=== PATIENT | female | born 1960 | race Caucasian/White ===

== ENCOUNTER → 2022-03-16 | Outpatient (CLI) | payer BC, SELFPAY ==
--- NOTE | 2022-03-16 15:26 | CT_ITS ---
EXAM: CT NECK WITH INTRAVENOUS CONTRAST CLINICAL INDICATION: LYMPHEDEMA TECHNIQUE: Helically acquired images were obtained of the neck with intravenous contrast. This CT exam was performed using one or more of the following dose reduction techniques: automated exposure control, adjustment of the mA and/or kV according to patient size, and/or use of iterative reconstruction technique. This report was created using [employer] report generation technology. CONTRAST: 75 cc of Isovue-370 IV. RADIATION DOSE: CTDIvol = 19.88 mGy, DLP = 617.82 mGy-cm. COMPARISON: None. FINDINGS: NASOPHARYNX: Unremarkable. SUPRAHYOID NECK: Unremarkable. Oropharynx, oral cavity, parapharyngeal space and retropharyngeal space are unremarkable. INFRAHYOID NECK: Unremarkable. The larynx, hypopharynx and supraglottis are unremarkable. SUBMANDIBULAR/PAROTID GLANDS: Unremarkable. Glands are normal in size. THYROID: Unremarkable. No enlarged or calcified nodules. BONES/JOINTS: No acute fracture. SOFT TISSUES: Unremarkable. VASCULATURE: No acute findings. LYMPH NODES: Unremarkable. No lymphadenopathy. LUNG APICES: Unremarkable as visualized. CT/Soft Tissue Neck WITH Contrast IMPRESSION: Normal neck CT. Electronically Signed: Elijah Mcconnell MD at 5:23 EDT ,
[2022-03-16 16:21] LABS: CREATININE FINGERSTICK < 0.9 mg/dL (0.55-1.02); EGFR FINGERSTICK > 60.0000 mL/min (>60)
== END | disposition home or self-care (01) ==
PROVIDERS: PCP Internal Medicine; Visit Provider Internal Medicine
DX: R59.0 Localized enlarged lymph nodes (principal)
CPT/HCPCS: 70491; Q9967

== ENCOUNTER → 2024-02-07 | Outpatient (CLI) | payer BC, SELFPAY ==
--- NOTE | 2024-02-07 13:04 | VDUE_ITS ---
Reason For Study: Right arm pain Right Proximal Right jugular vein is spontaneous, widely patent, phasic, with no intraluminal echogenicity noted. Right subclavian vein is spontaneous, widely patent, phasic, with no intraluminal echogenicity noted. Right Lower Arm Right radial vein is compressible. Radial artery distal, 50.9 cm/sec. Right ulnar vein is compressible. Right Arm Right axillary vein is spontaneous, patent, phasic, competent, compressible and demonstrates augmentation. Right brachial vein is compressible. Right cephalic vein is compressible. Right basilic vein is compressible. Patient Safety [facility] VL/Venous Duplex US, Unilateral Interpretation Summary Deep veins of the right upper extremity are patent and compressible segmentally . There is no evidence of deep vein thrombosis. Superficial veins of the right upper extremity are patent and compressible segm entally. There is no evidence of superficial vein thrombosis. Right radial artery patent with normal velocities and waveforms. Ordering Physician: Teresa Severino Referring Physician: Linnea Sam M.D. Performed By: Yany Sy RVT ???
== END | disposition home or self-care (01) ==
LOC: CVS 13:03
PROVIDERS: PCP Internal Medicine; Referring Provider Physician Assistant; Visit Provider Physician Assistant
DX: M79.601 Pain in right arm (principal); G89.29 Other chronic pain; Z86.718 Personal history of other venous thrombosis and embolism
CPT/HCPCS: 93971